=== PATIENT | female | born 1935 | race Caucasian/White ===

== ENCOUNTER 2021-05-14 09:39 | Emergency (ER) | payer OTHER, SELFPAY ==
--- NOTE | ~2021-05-14 | XR_ITS ---
EXAMINATION: XR hip LT 2V w AP pelvis EXAM DATE: 05/14/2021 10:15 INDICATION: left hip pain s/p fall 3 days ago. TECHNIQUE: Left hip frontal, crosstable lateral and 'frog-leg' projections for interpretation. Fronta l projection pelvis. There is no prior study for comparison. FINDINGS: Smooth left hip femoral head contour, no radiographic evidence of avascular necrosis. Ther e are no acute pelvic or left hip fractures or dislocations identified. There is no subcutaneous gas . There are arterial calcifications, arteriosclerosis. There are no radiopaque foreign bodies. Th ere is mild to moderate symmetric bilateral hip primary osteoarthritis. Lumbar fusion hardware and s pine stimulator pack. IMPRESSION: 1. XR hip LT 2V w AP pelvis exam without acute osseous findings. Reviewed, dictated and finalized at location B. S ASSISTANT AND FEEDER
[2021-05-14 09:55] VITALS: BP 125/50; PULSE 63; RESP 16; TEMP 36.7; O2SAT 98
--- NOTE | 2021-05-14 10:11 | ED.LOWEXIN ---
HPI - Extremity Injury (Lower) General Chief Complaint: Extremity Injury, Lower Stated Complaint: left/right hip pain Time Seen by Provider: 05/14/21 10:11 Source: patient Mode of arrival: ambulatory Limitations: no limitations History of Present Illness HPI Narrative: Corinna Reyes is a 86 yo female with a PMH of HTN, high cholesterol, depression,diabetes, GERD, who fell on Wednesday and hit her head and hurt her left hip. It has been fine but her hip is persisted in terms of being uncomfortable and comes here for evaluation for fracture prior to leaving for [place] in the morning Related Data Home Medications Medication Instructions Recorded Confirmed amlodipine 05/14/21 atenolol 05/14/21 atorvastatin 05/14/21 clonidine HCl 05/14/21 denosumab [Prolia] mg SUBCUT 05/14/21 donepezil mg 05/14/21 duloxetine mg PO 05/14/21 estradiol VAGINAL 05/14/21 famotidine 05/14/21 fluticasone propionate INTRANASAL 05/14/21 furosemide 05/14/21 hydralazine 05/14/21 insulin glargine U-300 conc unit SUBCUT 05/14/21 [Toujeo SoloStar U-300 Insulin] metformin 05/14/21 omeprazole 05/14/21 potassium chloride [Klor-Con M10] meq PO 05/14/21 Allergies Allergy/AdvReac Type Severity Reaction Status Date / Time No Known Allergies Allergy Verified 05/14/21 09:59 Review of Systems Review of Systems: CONSTITUTIONAL: Denies fever, chills, sweats. EYES: Denies visual changes, redness, discharge. ENT: Denies rhinorrhea, congestion, sore throat, otalgia. CARDIOVASCULAR: Denies chest pain, palpitations, edema. RESPIRATORY: Denies dyspnea, wheezing, cough GASTROINTESTINAL: Denies abdominal pain, nausea, vomiting, diarrhea. GENITOURINARY: Denies dysuria, hematuria, abnormal discharge SKIN: Denies rash or itching. NEUROLOGIC: Denies numbness, or focal weakness. PSYCHIATRIC: Denies anxiety or depression. Left hip pain after fall on Wednesday PMF Past Medical History Medical History Diabetes GERD (gastroesophageal reflux disease) High blood cholesterol High blood pressure Family History Family History Other Diabetes mellitus Family history of chronic obstructive pulmonary disease Social History Social History Smoking status: Never smoker Alcohol intake: never Comments At time of signature, I agree with nursing past medical, surgical, social and family history. There is no relevant family history pertinent to the presenting complaint. Exam Narrative: GENERAL: This is a well-nourished, well-developed patient, in mild distress. HEAD: normocephalic, atraumatic. EYES: . Sclera clear/white. Vision is grossly intact. EARS: External ears normal,. Hearing grossly intact. NOSE: External nose normal without nasal discharge, nares without redness, no rhinorrhea. THROAT: Mucous membranes moist, NECK: Neck supple, n CARDIOVASCULAR: Regular rate and rhythm without murmurs, gallops, or rubs. RESPIRATORY: Clear to auscultation. Breath sounds equal bilaterally. No wheezes, rales, or rhonchi. GASTROINTESTINAL: Abdomen soft, non-tender, SKIN: warm, intact with no suspicious lesions or rash, good texture and turgor. NEURO: awake, alert, and oriented to person, place and time. There were no obvious focal neurologic abnormalities. Steady gait EXTREMITIES: Normal range of motion. Mild limp on left side when ambulating but able to walk BACK: Nontender without deformity Course Course Emergency Course: Fell on Wednesday and hit head and left hip has no problem with head but daughter wants her checked out before she leaves for [place] in the morning X-ray left hip and pelvis-negative pelvis and hip, there is mild to moderate some metric bilateral osteoarthritic arthritis patient has lumbar fusion with hardware Level of Care: Express Care Visit Vital Signs Vital signs: V
== END 2021-05-14 10:40 | disposition home or self-care (01) ==
PROVIDERS: Emergency Provider Nurse Practitioner; PCP Internal Medicine
DX: M25.552 Pain in left hip (principal); E11.9 Type 2 diabetes mellitus without complications; K21.9 Gastro-esophageal reflux disease without esophagitis; E78.00 Pure hypercholesterolemia, unspecified; I10 Essential (primary) hypertension
CPT/HCPCS: 73502; 99213; G0463

== ENCOUNTER 2024-05-09 12:31 | Emergency (ER) | payer MEDICARE, SELFPAY ==
--- NOTE | ~2024-05-09 | CT_ITS ---
CT abdomen pelvis wo con Ordering provider: Sonja Napoles PA-C History: 89 years Female with . right lower quadrant abd pain . Comparison: February 28, 2010 Technique: CT abdomen and pelvis without IV and without oral contrast. Automated exposure control and iterative reconstruction technique were employed. The dose-length product was 271.87 mGy-cm. Findings: VISUALIZED LOWER CHEST: Dependent atelectatic changes. Nodule in the right lower lobe medially measur ing [address] follow-up is advised. UPPER ABDOMINAL ORGANS: Liver: Normal. Gallbladder: Status post cholecystectomy. Spleen: Normal. Calcified lesion. Stomach/duodenum: Sliding hiatus hernia. Pancreas: Atrophic. Adrenals: Normal. Kidneys: Small size the right kidney.. Calcification seen in the left kidney which is most likely vas cular. Stone is less likely. PELVIC ORGANS: The bladder is normal. BOWEL AND MESENTERY: Colon: No evidence of diverticulitis. Fecal material is loaded in the colon. Area of thickening and s light narrowing in the hepatic flexure is seen. Follow-up advised. The appendix is not demonstrated. Small Bowel: Normal. No obstruction. Peritoneum/mesentery: No free air or free fluid. No mesenteric lymphadenopathy. RETROPERITONEUM: Mild atheromatous disease of the abdominal aorta. No retroperitoneal lymphadenopat hy. MUSCULOSKELETAL: Superficial soft tissues: The superficial soft tissues are normal. Bones: Age appropriate degenerative changes of the spine. . Bilateral sacroiliitis. Postoperative otis nges in the lower spine. Spinal Stimulator is seen in the right lower abdomen posteriorly IMPRESSION: 1. Atrophic right kidney with no hydronephrotic changes. Calcification in the left renal pelvis area most likely vascular. Stone cannot be excluded. 2. Constipation. 3. Sliding hiatus hernia. 4. Area of narrowing in the right side of the colon in the hepatic flexure area. Follow-up advised t o exclude a mass. Reviewed, dictated and finalized at location A. LY RESOURCE MANAGEMENT PROFESSOR IMPRESSION: 1. Atrophic right kidney with no hydronephrotic changes. Calcification in the left renal pelvis area most likely vascular. Stone cannot be excluded. 2. Constipation. 3. Sliding hiatus hernia. 4. Area of narrowing in the right side of the colon in the hepatic flexure are a. Follow-up advised to exclude a mass.
[2024-05-09 12:33] VITALS: BP 135/63; PULSE 69; RESP 17; TEMP 36.7; O2SAT 99
--- NOTE | 2024-05-09 15:03 | PC.NURSE ---
pt made aware we need a urine specimen. pt unable to go at this time and is declining straight cath. call light within reach when pt is able to provide sample.
[2024-05-09 15:06] LABS: Basophils Percent Auto 0.3 % (0.2-1.2); Eosinophils Absolute Auto 0.3 K/mm3 (0-0.3); Hematocrit 34.1 % (37.0-47.0); Hemoglobin 11.2 g/dL (12.0-15.0); Immature Granulocyte Absolute 0.02 K/mm3 (0.00-0.031); Immature Granulocyte Percent A 0.3 % (0-0.5); Lymphocytes Absolute Auto 1.21 K/mm3 (0.9-3.2); Lymphocytes Percent Auto 18.7 % (18.3-44.2); Mean Corpuscular HGB Conc 32.8 g/dl (32-36); Mean Corpuscular Hemoglobin 30.7 pg (26-34); Mean Corpuscular Volume 93.4 fl (80-100); Mean Platelet Volume 10.9 fl (7.4-10.4); Monocytes Absolute Auto 0.6 K/mm3 (0.1-0.6); Monocytes Percent Auto 9.3 % (2.6-8.5); Neutrophils Absolute Auto 4.3 K/mm3 (1.3-6.7); Neutrophils Percent Auto 66.4 % (45.5-73.1); Platelet Count Result 203 k/mm3 (150-375); Red Blood Count 3.65 M/mm3 (4.2-5.4); Red Cell Distribution Width 12.9 % (11.5-14.5); White Blood Count 6.5 K/mm3 (4.5-10.0)
--- NOTE | 2024-05-09 15:15 | ED.ABDPAIN ---
HPI - Abdominal Pain General Chief Complaint: Abdominal Pain Stated Complaint: abd pain x4d Time Seen by Provider: 05/09/24 14:58 Source: patient and family Mode of arrival: ambulatory Limitations: no limitations History of Present Illness HPI narrative: This is an 89-year-old female that presents to the emergency department for lower abdominal pain. Reports right lower abdominal pain. Ongoing over the last several days. No associated symptoms. Related Data Home Medications ?Medication ?Instructions ?Recorded ?Confirmed ?Last Taken ?Type amlodipine 10 mg tablet 05/14/21 Unknown History atenolol 25 mg tablet 05/14/21 Unknown History atorvastatin 20 mg tablet 05/14/21 Unknown History clonidine HCl 0.3 mg tablet 05/14/21 Unknown History denosumab 60 mg/mL subcutaneous mg subcut 05/14/21 Unknown History syringe (Prolia) donepezil 10 mg tablet mg 05/14/21 Unknown History duloxetine 60 mg capsule,delayed mg PO 05/14/21 Unknown History release estradiol 0.01% (0.1 mg/gram) vaginal 05/14/21 Unknown History vaginal cream famotidine 20 mg tablet 05/14/21 Unknown History fluticasone propionate 50 intranasal 05/14/21 Unknown History mcg/actuation nasal spray,suspension furosemide 20 mg tablet 05/14/21 Unknown History hydralazine 50 mg tablet 05/14/21 Unknown History insulin glargine U-300 conc 300 unit subcut 05/14/21 Unknown History unit/mL (1.5 mL) subcutaneous pen (Toujeo SoloStar U-300 Insulin) metformin 05/14/21 Unknown History omeprazole 20 mg capsule,delayed 05/14/21 Unknown History release potassium chloride 10 mEq meq PO 05/14/21 Unknown History tablet,extended release(part/cryst) (Klor-Con M) Allergies Allergy/AdvReac Type Severity Reaction Status Date / Time No Known Allergies Allergy Verified 05/09/24 12:32 Review of Systems Review of Systems: CONSTITUTIONAL: Denies fever GASTROINTESTINAL: Reports abdominal pain. Denies nausea, vomiting, or diarrhea. GENITOURINARY: Denies dysuria or hematuria. All systems reviewed & are unremarkable except as noted in HPI and below PMFSH Past Medical History Medical History Diabetes GERD (gastroesophageal reflux disease) High blood cholesterol High blood pressure Family History Family History Other Diabetes mellitus Family history of chronic obstructive pulmonary disease Social History Social History Smoking status: Never smoker Alcohol intake: never Exam Narrative: GENERAL: Well-appearing, well-nourished, and in no acute distress. HEAD: Normocephalic, atraumatic. EYES: EOMI. CHEST: Clear to auscultation. No respiratory distress. No wheezes rales or rhonchi HEART: Regular rate and rhythm. No murmur heard. Normal peripheral pulses. ABDOMEN: Soft, nontender, nondistended, normal active bowel sounds. EXTREMITIES: Normal range of motion. No edema. SKIN: Warm, dry, no rash. NEURO: No focal deficits. Alert and oriented x3. PSYCH: Normal mood and affect Course Course Emergency Course: Patient and family updated on workup and agree with plan of care Vital Signs Vital signs: Vital Signs Temperature 98.0 F 05/09/24 12:33 Pulse Rate 69 05/09/24 12:33 Respiratory Rate 17 05/09/24 12:33 Blood Pressure 135/63 05/09/24 12:33 Pulse Oximetry 99 05/09/24 12:33 Oxygen Delivery Room Air 05/09/24 12:33 Temperature 98.0 F 05/09/24 12:33 Pulse Rate 69 05/09/24 12:33 Respiratory Rate 17 05/09/24 12:33 Blood Pressure 135/63 05/09/24 12:33 Pulse Oximetry 99 05/09/24 12:33 Oxygen Delivery Room Air 05/09/24 12:33 MDM - Abdominal Pain MDM Narrative Medical decision making narrative: Patient presents to the emergency department for abdominal discomfort. Ongoing over the last several days. She is afebrile and nontoxic appearing. Her vitals are stable. Cbc without leukocytosis. Shows normocytic anemia hemoglobin of 11.2. Metabolic panel with evidence of patient chronic kidney disease. Potassium is also mildly low. This was replaced. Urine with 6-10 white blood cells, no bacteria. Patient is not having any urinary symptoms. This will be sent for culture. CT abdomen and pelvis shows atrophic right kidney. Calcification in the left renal pelvis. Constipation. Sliding hiatal hernia. Area of narrowing in the right side of the colon and hepatic flexure area. Follow-up advised to exclude mass. Patient and family updated on workup and agree with plan of care. She is to follow up with primary provider. She was given warnings to return the ER Differential Diagnosis Differential diagnosis: Likely abdominal pain, acute appendicitis, constipation and diverticulitis Lab Data Attestation: I reviewed the patient's lab results. 05/09/24 14:58 05/09/24 14:58 Labs: Lab Results 05/09/24 05/09/24 Range/Units 14:58 18:09 WBC 6.5 (4.5-10.0) K/mm3 RBC 3.65 L (4.2-5.4) M/mm3 Hgb 11.2 L (12.0-15.0) g/dL Hct 34.1 L (37.0-47.0) % MCV 93.4 (80-100) fl MCH 30.7 (26-34) pg MCHC 32.8 (32-36) g/dl RDW 12.9 (11.5-14.5) % Plt Count 203 (150-375) k/mm3 MPV 10.9 H (7.4-10.4) fl Immature Gran % (Auto) 0.3 (0-0.5) % Neut % (Auto) 66.4 (45.5-73.1) % Lymph % (Auto) 18.7 (18.3-44.2) % [place] % (Auto) 9.3 H (2.6-8.5) % Eos % (Auto) 5.0 H (0-4.4) % Baso % (Auto) 0.3 (0.2-1.2) % Lymph # (Auto) 1.21 (0.9-3.2) K/mm3 [place] # (Auto) 0.6 (0.1-0.6) K/mm3 Eos # (Auto) 0.3 (0-0.3) K/mm3 Baso # (Auto) 0.0 (0.0-0.1) K/mm3 Abs Immat Gran (auto) 0.02 (0.00-0.031) K/mm3 Absolute Neuts (auto) 4.3 (1.3-6.7) K/mm3 Absolute Nucleated RBC 0.000 (0.0-0.012) K/mm3 Nucleated RBC % 0.0 (0.0-0.2) % Sodium 135 L (137-145) mmol/L Potassium 3.2 L (3.4-5.0) mmol/L Chloride 100 (98-107) mmol/L Carbon Dioxide 26 (22-30) mmol/L Anion Gap 9 (4-12) mmol/L BUN 42 H (7-17) mg/dL Creatinine 1.95 H (0.7-1.0) mg/dL Estim Creat Clear Calc Not Reportable Estimated GFR 24 L (59 - ) Glucose 153 H (65-110) mg/dL Calcium 8.7 (8.4-10.2) mg/dL Magnesium 1.9 (1.6-2.3) mg/dL Total Bilirubin 0.8 (0.2-1.3) mg/dL AST 24 (14-36) U/L ALT 14 (6-35) U/L Alkaline Phosphatase 67 (38-126) U/L Total Protein 7.0 (6.3-8.2) g/dL Albumin 3.8 (3.5-5.1) g/dL Lipase 17 L (23-300) U/L Urine Color Yellow (Yellow) Urine Appearance Clear (Clear) Urine pH 5.5 (5.0-9.0) Ur Specific [place] 1.013 (1.001-1.035) Urine Protein 1+ H (Negative) mg/dL Urine Glucose (UA) Negative (Negative) mg/dL Urine Ketones Negative (Negative) mg/dL Ur Blood (Man) Negative (Negative) Urine Nitrate Negative (Negative) Urine Bilirubin Negative (Negative) Urine Urobilinogen 0.2 (<2.0) mg/dL Leukocyte Esterase Rfl Trace H (Negative) GABRIEL/UL Urine RBC 0-2 (0-2) /hpf Urine WBC 6-10 H (0-3) /hpf Ur Squamous Epith Cells None seen (Few) /hpf Urine Bacteria None seen /hpf Urine Casts 0-2 Imaging Data Radiologist's impression: ITS Impressions Abdomen/Pelvis CT 05/09/24 16:12 IMPRESSION: 1. Atrophic right kidney with no hydronephrotic changes. Calcification in the left renal pelvis area most likely vascular. Stone cannot be excluded. 2. Constipation. 3. Sliding hiatus hernia. 4. Area of narrowing in the right side of the colon in the hepatic flexure area. Follow-up advised to exclude a mass. Critical Care Time Critical Care Time Critical Care Time: No Discharge Plan Discharge Clinical Impression: Abdominal pain Qualifiers: Abdominal location: unspecified location Qualified Code(s): R10.9 - Unspecified abdominal pain Constipation Qualifiers: Constipation type: unspecified constipation type Qualified Code(s): K59.00 - Constipation, unspecified Chronic kidney disease (CKD) Qualifiers: Chronic kidney disease stage: stage 4 (GFR 15-29) Qualified Code(s): N18.4 - Chronic kidney disease, stage 4 (severe) Patient Disposition: Home, Self-Care Condition: Stable Instructions: Constipation (ED), Chronic Kidney Disease (ED), Abdominal Pain (ED) Additional Instructions: Return to the ER if you experience fever, abdominal pain with nausea and vomiting, you are unable to keep down liquids or solids, blood in the stool, pain or burning with urination, blood in the urine or any other symptoms that are concerning to you Remain well hydrated. Continue stool softener daily (Colace). Miralax as needed. You may take Tylenol (1,000mg) every 6-8 hours as needed for pain. Prescribed pain medication as needed The radiologist is recommending further evaluation of an area of narrowing in your colon with colonoscopy (to make sure this is not a mass). Follow up with your primary care doctor. They will need to request records from this visit so they can see all of our studies Patient Language: Prydeinig Prescriptions: No Action atorvastatin 20 mg tablet donepezil 10 mg tablet clonidine HCl 0.3 mg tablet atenolol 25 mg tablet famotidine 20 mg tablet amlodipine 10 mg tablet omeprazole 20 mg capsule,delayed release(DR/EC) hydralazine 50 mg tablet furosemide 20 mg tablet estradiol 0.01 % (0.1 mg/gram) cream VAGINAL fluticasone propionate 50 mcg/actuation spray,suspension INTRANASAL potassium chloride [Klor-Con M10] 10 mEq tablet,ER particles/crystals PO duloxetine 60 mg capsule,delayed release(DR/EC) PO Prolia 60 mg/mL syringe SUBCUT Tourios SoloStar U-300 Insulin 300 unit/mL (1.5 mL) insulin pen SUBCUT metformin Follow-up/Referrals: Ana,Lalitha Gaming DO [Primary Care Provider] -
[2024-05-09] MEDS: MORPHINE SULFATE (*CRX) 2 MG/ML INJ IV PUSH (15:36)
[2024-05-09] MEDS: ONDANSETRON INJ 4 MG/2 ML VIAL IV PUSH (15:36)
[2024-05-09 15:40] LABS: Alanine Aminotransferase 14 U/L (6-35); Albumin Level 3.8 g/dL (3.5-5.1); Alkaline Phosphatase 67 U/L (38-126); Anion Gap 9 mmol/L (4-12); Aspartate Amino Transferase 24 U/L (14-36); Bilirubin,Total 0.8 mg/dL (0.2-1.3); Blood Urea Nitrogen 42 mg/dL (7-17); Calcium 8.7 mg/dL (8.4-10.2); Carbon Dioxide 26 mmol/L (22-30); Chloride 100 mmol/L (98-107); Estimated Glomerular Filt Rate 24; Glucose 153 mg/dL (65-110); Lipase 17 U/L (23-300); Potassium 3.2 mmol/L (3.4-5.0); Sodium 135 mmol/L (137-145)
[2024-05-09 16:15] LABS: Magnesium 1.9 mg/dL (1.6-2.3)
[2024-05-09] MEDS: POTASSIUM CHLORIDE 20 MEQ ER TABLET 40 MEQ PO (18:34)
[2024-05-09 18:35] LABS: Add Urine Microscopic? YES; Appearance Urine Clear (Clear); Bacteria Urine None Seen /hpf; Bilirubin Urine Negative (Negative); Blood Urine Negative (Negative); Color Urine Yellow (Yellow); Glucose Urine UA Negative (Negative); Ketones Urine Negative (Negative); Leukocyte Esterase Ur Trace LEU/UL (Negative); Nitrate Urine Negative (Negative); Non Pathogenic Casts 0-2; Protein Urine 1+ mg/dL (Negative); RBC Urine 0-2 /hpf (0-2); Specific Grav Ur 1.013 (1.001-1.035); Squamous Epithelial Cell Urine None Seen /hpf (Few); Urobilinogen Urine 0.2 mg/dL (<2.0); pH Urine 5.5 (5.0-9.0)
--- NOTE | 2024-05-09 18:36 | ECG_ITS ---
Test Date: 2024-05-09 18:41:09 Measurements Intervals [place] Rate: 66 P: 70 WI: 192 QRS: 21 QRSD: 154 T: 0 QT: 472 QTc: 497 Interpretive Statements SINUS RHYTHM RIGHT BUNDLE BRANCH BLOCK [120+ ms QRS DURATION, UPRIGHT V1, 40+ ms S IN I/aVL/V4/V5/V6] No previous ECG available for comparison Electronically Signed On 05-10-2024 14:18:28 ELECTROPLATING SALES REPRESENTATIVE by Yosi Grajeda M.D.
== END 2024-05-09 19:13 | disposition home or self-care (01) ==
PROVIDERS: Emergency Provider Physician Assistant; PCP Internal Medicine
DX: I12.9 Hypertensive chronic kidney disease with stage 1 through stage 4 chronic kidney disease, or unspecified chronic kidney disease (principal); N18.4 Chronic kidney disease, stage 4 (severe); K59.00 Constipation, unspecified; R10.30 Lower abdominal pain, unspecified; E11.9 Type 2 diabetes mellitus without complications; K21.9 Gastro-esophageal reflux disease without esophagitis
CPT/HCPCS: 36415; 74176; 80053; 81001; 83690; 83735; 85025; 87086; 93005; 96374; 96375; 99284; A9270; J2270; J2405